=== PATIENT | female | born 1970 | race African-American/Black ===

== ENCOUNTER 2017-03-15 12:12 | Emergency (ER) | payer BC ==
[2017-03-15 13:38] LABS: EOSINOPHILS 3.2 % (0-7); HEMATOCRIT 35.7 % (36.0-48.0); HEMOGLOBIN 11.8 g/dL (12-16); LYMPHOCYTES 46.6 % (15-50); MCH 28.9 pg (26.0-34.0); MCHC 33.1 g/dL (31.0-37.0); MCV 87.5 fL (80.0-100.0); MEAN PLATELET VOLUME 10.2 fL (7.4-10.4); MONOCYTES 8.7 % (2-11); NEUTROPHILS 40.5 % (40-80); PLATELET COUNT 252 10x3/uL (130-400); RBC 4.08 10x6/uL (4.00-5.40); RDW 13.9 % (11.5-14.5); WBC 3.1 10x3/uL (4.8-10.8)
[2017-03-15 13:54] LABS: CALC OSMOLALITY 276 mosm/kg (275-300); CALCIUM 8.6 mg/dL (8.5-10.1); CARBON DIOXIDE 27.4 mmol/L (21.0-32.0); CHLORIDE - SERUM 105 mmol/L (98-107); GLUCOSE 90 mg/dL (74-106); POTASSIUM - SERUM 3.9 mmol/L (3.5-5.1); SODIUM 139 mmol/L (136-145); TROPONIN-I < 0.017 ng/mL (0.000-0.060); UREA NITROGEN 9 mg/dL (7-18); eGFR NON AFRICAN AMERICAN 63 mL/min (90-120)
== END 2017-03-15 15:21 | disposition home or self-care (01) ==
LOC: D.ER 12:12
PROVIDERS: Emergency Medicine
DX: R00.2 Palpitations (principal)

== ENCOUNTER 2018-02-04 23:39 | Emergency (ER) | payer SELFPAY ==
[~2018-02-04] VITALS: Ht 170.2 cm; Wt 75.0 kg
[2018-02-05 00:10] VITALS: Ht 170.2 cm; Wt 75.0 kg
[2018-02-05 00:41] LABS: APPEARANCE CLEAR (CLEAR); BILIRUBIN NEGATIVE (NEGATIVE); COLOR YELLOW (YELLOW); GLUCOSE NEGATIVE (NEGATIVE); KETONE NEGATIVE (NEGATIVE); NITRITE NEGATIVE (NEGATIVE); PROTEIN NEGATIVE (NEGATIVE); UROBILINOGEN NORMAL (NORMAL)
[2018-02-05 00:43] LABS: BACTERIA FEW /hpf (NONE SEEN); EPITHELIAL CELLS 0-5 /hpf (0-5); RED CELLS - URINE 0-5 /hpf (0-5); WHITE CELLS - URINE 0-5 /hpf (0-5)
[2018-02-05 01:37] VITALS: BP 122/76
[2018-02-08 17:07] LABS: CHLAMYDIA TRACHOMATIS, NAA Negative (Negative)
== END 2018-02-05 01:37 | disposition home or self-care (01) ==
LOC: D.ER 23:39
PROVIDERS: Family Medicine
DX: Z20.2 Contact with and (suspected) exposure to infections with a predominantly sexual mode of transmission (principal)

== ENCOUNTER 2018-05-31 03:22 | Emergency (ER) | payer SELFPAY ==
[~2018-05-31] VITALS: Ht 170.2 cm; Wt 71.8 kg
[2018-05-31 03:31] VITALS: Ht 170.2 cm; Wt 71.8 kg
[2018-05-31] MEDS ORDERED: ZOVIRAX800 MG PO (04:41)
[2018-05-31] MEDS ORDERED: MINOCIN100 MG PO (04:41)
[2018-05-31 04:51] VITALS: BP 130/82
== END 2018-05-31 05:16 | disposition home or self-care (01) ==
LOC: D.ER 03:22
DX: R21 Rash and other nonspecific skin eruption (principal); J06.9 Acute upper respiratory infection, unspecified; J02.9 Acute pharyngitis, unspecified

== ENCOUNTER 2018-07-24 18:46 | Emergency (ER) | payer SELFPAY ==
[~2018-07-24] VITALS: Ht 170.2 cm; Wt 69.5 kg
[~2018-07-24 18:46] MED LIST: MINOCIN100 MG PO; ZOVIRAX800 MG PO
[2018-07-24 18:48] VITALS: Ht 170.2 cm; Wt 69.5 kg
[2018-07-24] MEDS ORDERED: VOLTAREN75 MG PO (19:50)
[2018-07-24 20:36] VITALS: BP 122/72
== END 2018-07-24 20:36 | disposition home or self-care (01) ==
LOC: D.ER 18:46
DX: S16.1XXA Strain of muscle, fascia and tendon at neck level, initial encounter (principal); V43.52XA Car driver injured in collision with other type car in traffic accident, initial encounter; Y93.89 Activity, other specified; Y92.410 Unspecified street and highway as the place of occurrence of the external cause; S39.012A Strain of muscle, fascia and tendon of lower back, initial encounter

== ENCOUNTER 2019-05-31 12:10 | Emergency (ER) | payer SELFPAY ==
[~2019-05-31] VITALS: Ht 170.2 cm; Wt 86.0 kg
[~2019-05-31 12:10] MED LIST changes: +VOLTAREN75 MG PO
[2019-05-31 12:35] VITALS: Ht 170.2 cm; Wt 86.0 kg
[2019-05-31 15:00] VITALS: BP 130/73
== END 2019-05-31 15:00 | disposition home or self-care (01) ==
LOC: D.ER 12:10
DX: R20.2 Paresthesia of skin (principal)

== ENCOUNTER → 2020-10-04 18:42 | Outpatient (CLI) | payer OTHER ==
[2020-05-23 09:43] VITALS: BMI 31.1
[~2020-10-04 18:42] MED LIST changes: +BAYER CHEWABLE81 MG PO; +FERROUS SULFAT325 MG PO; +MIRALAX17 GM PO; +PROTONIX40 MG PO
[2020-10-04 19:15] LABS: HEMATOCRIT 36.6 % (36.0-48.0); HEMOGLOBIN 12.2 g/dL (12-16); LYMPHOCYTE ABS# 1.84 10x3/uL (1.18-3.74); MCH 29.1 pg (26.0-34.0); MCHC 33.3 g/dL (31.0-37.0); MCV 87.4 fL (80.0-100.0); MEAN PLATELET VOLUME 10.7 fL (7.4-10.4); NEUTROPHIL ABS# 1.17 10x3/uL (1.56-6.13); PLATELET COUNT 261 10x3/uL (130-400); RBC 4.19 10x6/uL (4.00-5.40); RDW 13.4 % (11.5-14.5); WBC 3.3 10x3/uL (4.8-10.8)
[2020-10-04 19:40] LABS: CALCIUM 9.5 mg/dL (8.5-10.1); CARBON DIOXIDE 28.4 mmol/L (21.0-32.0); CREATININE - SERUM 1.2 mg/dL (0.6-1.3)
[2020-10-04 20:05] LABS: ANION GAP 12.1 mmol/L (8-16); POTASSIUM - SERUM 4.5 mmol/L (3.5-5.1)
[2020-10-04 20:37] LABS: EOSINOPHILS 4 % (0-7); LYMPHOCYTES 69 % (15-50); NEUTROPHILS 26 % (40-80); PLATELET ESTIMATE NORMAL
== END | disposition home or self-care (01) ==
LOC: D.LAB 18:42
DX: R94.31 Abnormal electrocardiogram [ECG] [EKG] (principal); R07.9 Chest pain, unspecified